=== PATIENT | female | born 1990 | race Caucasian/White ===

== ENCOUNTER → 2017-04-19 14:15 | Observation (INO) ==
[2017-04-19 12:01] LABS: Bilirubin,Urine Negative (Negative); Blood,Urine Negative (Negative); Clarity,Urine Cloudy (Clear); Color,Urine Yellow (Yellow); Glucose,Urine (UA) Normal (Normal); Ketones,Urine Negative (Negative); Leukocyte Esterase,Urine Negative (Negative); Nitrite,Urine Negative (Negative); Protein,Urine Trace mg/dL (Neg-Trace); Specific Gravity,Urine 1.016 (1.010-1.025); Urobilinogen,Urine Normal (Normal)
[2017-04-19 12:06] LABS: Bacteria,Urine Few per hpf (None-Few); Hyaline Casts,Urine None Seen per lpf (None-Few); RBC,Urine 0-3 per hpf (0-3); Squamous Epithelial Cell,Urine Many per lpf (None-Few)
[2017-04-19 12:16] LABS: Calcium Oxalate Crystals,Urine Present
[2017-04-19 13:28] LABS: Amphetamine Screen,Urine Negative ng/mL (Cutoff=1000); Barbiturate Screen,Urine Negative ng/mL (Cutoff=200); Benzodiazepines Screen,Urine Negative ng/mL (Cutoff=200); Cannabinoid Screen,Urine Negative ng/mL (Cutoff = 50); Cocaine Screen,Urine Negative ng/mL (Cutoff= 300); Opiate Screen,Urine Negative ng/mL (Cutoff=300); Phencyclidine Screen,Urine Negative ng/mL (Cutoff=25)
--- NOTE | 2017-04-19 17:56 | OB/GYN Progress Note ---
Date of Encounter: 04/19/17 Time of Encounter: 17:53 - Assessment and Plan (1) Decreased movement Status: Acute 27 y/o @36 weeks presented to L&D with reports of decreased FM since yesterday, she reports that as she was on her way, she began to feel movement, patient kept for more than 2 hrs with reactive tracing, ok for discharge Qualifiers: Fetus number: single or unspecified fetus Trimester: third trimester Qualified Code(s): O36.8130 - Decreased movements, third trimester, not applicable or unspecified Objective - Vital Signs Vital Signs: Intake and Output 04/19/17 04/19/17 04/19/17 07:59 15:59 23:59 Other: Weight 82 kg Patient Weight 04/19/17 23:59 Weight 82 kg - Labs Labs: Abnormal lab results Urine Clarity Cloudy (Clear) A 04/19/17 11:15 Urine Microscopic WBC 5-15 per hpf (0-3) H 04/19/17 11:15 Ur Squamous Epith Cells Many per lpf (None-Few) H 04/19/17 11:15
== END | disposition home or self-care (01) ==
LOC: 1NENULAB
PROVIDERS: ADMIT Student in an Organized Health Care Education/Training Program; ATTEND Student in an Organized Health Care Education/Training Program

== ENCOUNTER → 2017-05-07 13:20 | Observation (INO) ==
[2017-05-07 11:28] LABS: Basophils % 0.2 %; Eosinophils # 0.1 K/mcL (0.0-0.6); Eosinophils % 0.7 %; Hematocrit 31.6 % (35.3-44.9); Hemoglobin 10.8 g/dL (11.5-15.4); Immature Granulocytes % 1.2 % (0-4); Lymphocytes # 2.3 K/mcL (0.6-4.6); Lymphocytes % 18.7 %; Mean Corpuscular HGB Conc 34.2 g/dL (31.6-35.5); Mean Corpuscular Hemoglobin 29.5 pg (28.0-33.3); Mean Corpuscular Volume 86.3 fL (83.0-100.0); Mean Platelet Volume 10.6 fL (9.4-12.4); Monocytes # 0.9 K/mcL (0.0-1.3); Monocytes % 7.2 %; Neutrophils # 8.6 K/mcL (1.6-8.9); Platelet Count 208 K/mcL (140-400); Red Blood Count 3.66 M/mcL (3.82-4.97); Red Cell Distribution Width 13.3 % (11.5-14.5)
[2017-05-07 11:38] LABS: Alanine Aminotransferase 5 Units/L (7-52); Aspartate Amino Transferase 11 Units/L (13-39); BUN/Creatinine Ratio 14 (6-26); Blood Urea Nitrogen 6 mg/dL (6-20); Lactate Dehydrogenase 131 Units/L (140-271); Uric Acid 4.1 mg/dL (2.3-7.6); eGFR For African Americans > 60 (> 60); eGFR For Non-African Americans > 60 (> 60)
--- NOTE | 2017-05-07 12:05 | OB/GYN Progress Note ---
Date of Encounter: 05/07/17 Time of Encounter: 12:00 - Assessment and Plan (1) Elevated blood pressure complicating in third trimester, antepartum Current Visit: Yes Status: Acute Initially BP in the office 162/108, repeat 152/100. In L&D, initial BP 141/99. Recheck showed BP 113/58 with multiple repeat pressures WNL. PIH labs performed and were negative. Patient will f/u for an NST and BP check on Thursday or Thursday (05/11/17). Patient safe for discharge home, with preeclampsia and labor precautions, when to return to triage or call provider. Patient verbalizes understanding. (2) Non-stress test reactive Current Visit: Yes Status: Acute FHR baseline = 120. Accelerations present. Subjective - Subjective Principal diagnosis: elevated blood pressure Interval history: Patient is a 27 y/o female at 39 + 0 weeks. presented to L& D for elevated BP from the OB office of 162/108, repeat 152/100. Patient denies JUSTIN, N /V, fevers, chills, dysuria, abdominal pain, vaginal bleeding, leakage of fluids , or contractions. Reports active movement. Patient has a hx of 1 prior c- section and would like to do a at [facility]. 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 PNL: BT O+, RPR neg, RI, HBsAg neg, HIV neg, GBS neg Antepartum ROS: movement normal, other (elevated BP), no new complaints, no loss of fluid, no vaginal bleeding, no contractions Objective - Vital Signs Vital Signs: Vitals: initially 141/99, HR 101, afebrile. Currently (12:00pm) BP 113/58, HR 86 Intake and Output 05/06/17 05/07/17 05/07/17 23:59 07:59 15:59 Other: Weight 84.141 kg Patient Weight 05/07/17 23:59 Weight 84.141 kg - Exam FHR: category 1 FHR comments: NST reactive Auscultation: bilateral: normal Abdomen: Present: normal appearance Uterus: Present: normal - Labs Labs: Abnormal lab results WBC 12.0 K/mcL (4.3-11.1) H 05/07/17 11:05 RBC 3.66 M/mcL (3.82-4.97) L 05/07/17 11:05 Hgb 10.8 g/dL (11.5-15.4) L 05/07/17 11:05 Hct 31.6 % (35.3-44.9) L 05/07/17 11:05 Creatinine 0.43 mg/dL (0.60-1.20) L 05/07/17 11:05 AST 11 Units/L (13-39) L 05/07/17 11:05 ALT 5 Units/L (7-52) L 05/07/17 11:05 Lactate Dehydrogenase 131 Units/L (140-271) L 05/07/17 11:05
[2017-05-07 12:06] LABS: Protein/Creatinine Ratio,Urine 0.24 mg/mg (0.00-0.20)
[2017-05-07 12:10] VITALS: BP 124/68
[~2017-05-07 13:20] MED LIST: FLUARIX QUAD 2017-18 36MOS UP/PF 0.5 ML SYRINGE IM ONE
== END | disposition home or self-care (01) ==
LOC: 1NENULAB
PROVIDERS: ADMIT Obstetrics & Gynecology; ATTEND Obstetrics & Gynecology

== ENCOUNTER 2017-05-11 11:21 | Observation (INO) ==
--- NOTE | 2017-05-11 11:44 | OB/GYN Progress Note ---
Date of Encounter: 05/11/17 Time of Encounter: 11:45 - Assessment and Plan (1) and not yet delivered in third trimester Current Visit: Yes Status: Acute (2) Previous section complicating , antepartum condition or complication Current Visit: Yes Status: Acute (3) Elevated blood pressure complicating in third trimester, antepartum Current Visit: No Status: Acute BP stable NST reactive 140's no decelerations occ contractions seen Objective - Vital Signs Vital Signs: Intake and Output 05/10/17 05/11/17 05/11/17 23:59 07:59 15:59 Other: Weight 85.4 kg Patient Weight 05/11/17 23:59 Weight 85.4 kg
== END 2017-05-11 11:50 | disposition home or self-care (01) ==
LOC: INTOOBSV 11:21 → 1NENULAB 11:21
PROVIDERS: ADMIT Obstetrics & Gynecology; ATTEND Obstetrics & Gynecology

== ENCOUNTER 2020-04-19 18:50 | Inpatient (IN) ==
[2020-04-19 19:56] LABS: Creatinine,Urine 76 mg/dL; Protein/Creatinine Ratio,Urine 0.43 mg/mg (0.00-0.20)
[2020-04-19 19:59] LABS: Basophils % 0.2 %; Eosinophils % 0.3 %; Hematocrit 36.4 % (35.3-44.9); Hemoglobin 11.9 g/dL (11.5-15.4); Immature Granulocytes % 1.5 % (0-4); Lymphocytes # 2.2 K/mcL (0.6-4.6); Lymphocytes % 23.7 %; Mean Corpuscular HGB Conc 32.7 g/dL (31.6-35.5); Mean Corpuscular Hemoglobin 28.4 pg (28.0-33.3); Mean Corpuscular Volume 86.9 fL (83.0-100.0); Mean Platelet Volume 11.4 fL (9.4-12.4); Monocytes # 0.4 K/mcL (0.0-1.3); Monocytes % 4.2 %; Neutrophils # 6.5 K/mcL (1.6-8.9); Platelet Count 196 K/mcL (140-400); Red Blood Count 4.19 M/mcL (3.82-4.97); Red Cell Distribution Width 17.4 % (11.5-14.5); Segmented Neutrophils % 70.1 %; White Blood Count 9.3 K/mcL (4.3-11.1)
[2020-04-19 20:19] LABS: Alanine Aminotransferase 7 Units/L (7-52); Aspartate Amino Transferase 14 Units/L (13-39); BUN/Creatinine Ratio 16 (6-26); Blood Urea Nitrogen 6 mg/dL (6-20); Lactate Dehydrogenase 131 Units/L (140-271); Uric Acid 3.9 mg/dL (2.3-7.6); eGFR For African Americans > 60 (> 60); eGFR For Non-African Americans > 60 (> 60)
[2020-04-19] MEDS ORDERED: Ringers Solution, Lactated 1,000 ML ONE (20:43)
[2020-04-19] MEDS ORDERED: Metoclopramide 10 MG/2 ML VIAL IVP PRN (21:12)
[2020-04-19] MEDS ORDERED: *HR* FentaNYL (PF) 100 MCG/2 ML VIAL IVP PRN (21:12)
[2020-04-19] MEDS ORDERED: Azithromycin 500 MG in 0.9 % Sodium Chloride 250 ML IVPB ONE (21:12)
[2020-04-19] MEDS ORDERED: Famotidine 20 MG/2 ML VIAL IVP PRN (21:12)
[2020-04-19] MEDS ORDERED: Ondansetron 4 MG/2 ML VIAL IVP PRN (21:12)
[2020-04-19] MEDS ORDERED: Naloxone 0.4 MG/ML INJ IVP PRN (21:12)
[2020-04-19] MEDS ORDERED: Oxytocin 20 units/ LR 1000 mL 20 UNIT/1,000 ML BAG IVC SCH (21:15)
[2020-04-19] MEDS ORDERED: EPHEDrine 50 MG/ML VIAL IVP PRN (21:32)
[2020-04-20] MEDS ORDERED: Ringers Solution, Lactated 1,000 ML ONE ×3 (04:47→15:09)
[2020-04-20] MEDS ORDERED: Ropivacaine/PF 0.2% 20 ML VIAL ONE (10:09)
[2020-04-20] MEDS: Epidural Premix (fent/bupiv) 110 ML EP SCH ×2 (10:20→18:49)
[2020-04-20 10:22] LABS: Amphetamine Screen,Urine Negative ng/mL (Cutoff=1000); Barbiturate Screen,Urine Negative ng/mL (Cutoff=200); Benzodiazepines Screen,Urine Negative ng/mL (Cutoff=200); Cannabinoid Screen,Urine Negative ng/mL (Cutoff = 50); Cocaine Screen,Urine Negative ng/mL (Cutoff= 300); Opiate Screen,Urine Negative ng/mL (Cutoff=300); Phencyclidine Screen,Urine Negative ng/mL (Cutoff=25)
[2020-04-20] MEDS ORDERED: Lidocaine 1% 20 ML MDV ONE (23:21)
[2020-04-21] MEDS ORDERED: Lanolin 7 G OINT...G. TP PRN (01:04)
[2020-04-21] MEDS ORDERED: Rho Immune Globulin 1,500 UNIT SYRINGE IM PRN (01:04)
[2020-04-21] MEDS ORDERED: Benzocaine/Menthol 56 GM AEROSOL SPRAY TP PRN (01:04)
[2020-04-21] MEDS ORDERED: Measles/Mumps/Rubella Vacc 0.5 ML VIAL SQ PRN (01:04)
[2020-04-21] MEDS ORDERED: Oxytocin 20 units/ LR 1000 mL 20 UNIT/1,000 ML BAG IVC ONE (01:04)
[2020-04-21] MEDS ORDERED: Oxytocin 20 units/ LR 1000 mL 20 UNIT/1,000 ML BAG IVC SCH (01:04)
[2020-04-21] MEDS: Acetaminophen 325 MG TABLET PO PRN ×2 (01:43→08:33)
[2020-04-21] MEDS: Ibuprofen 600 MG TABLET PO PRN ×3 (04:17→21:25)
[2020-04-21 06:10] LABS: Basophils % 0.1 %; Eosinophils % 0.1 %; Hematocrit 21.2 % (35.3-44.9); Immature Granulocytes % 0.6 % (0-4); Lymphocytes # 1.2 K/mcL (0.6-4.6); Lymphocytes % 8.8 %; Mean Corpuscular HGB Conc 32.5 g/dL (31.6-35.5); Mean Corpuscular Hemoglobin 29.1 pg (28.0-33.3); Mean Corpuscular Volume 89.5 fL (83.0-100.0); Mean Platelet Volume 11.5 fL (9.4-12.4); Monocytes # 0.6 K/mcL (0.0-1.3); Monocytes % 4.6 %; Neutrophils # 11.4 K/mcL (1.6-8.9); Platelet Count 115 K/mcL (140-400); Red Blood Count 2.37 M/mcL (3.82-4.97); Red Cell Distribution Width 17.7 % (11.5-14.5); Segmented Neutrophils % 85.8 %; White Blood Count 13.3 K/mcL (4.3-11.1)
[2020-04-21 06:11] LABS: Hemoglobin 6.9 g/dL (11.5-15.4)
[2020-04-21] MEDS: Prenatal Vit/FA 1 EACH TABLET PO SCH (08:33)
[2020-04-22 04:21] LABS: Basophils % 0.2 %; Eosinophils # 0.2 K/mcL (0.0-0.6); Eosinophils % 1.3 %; Hematocrit 27.9 % (35.3-44.9); Immature Granulocytes % 1.1 % (0-4); Lymphocytes # 2.9 K/mcL (0.6-4.6); Lymphocytes % 23.5 %; Mean Corpuscular HGB Conc 32.3 g/dL (31.6-35.5); Mean Corpuscular Hemoglobin 28.2 pg (28.0-33.3); Mean Corpuscular Volume 87.5 fL (83.0-100.0); Mean Platelet Volume 11.1 fL (9.4-12.4); Monocytes # 0.7 K/mcL (0.0-1.3); Monocytes % 5.4 %; Neutrophils # 8.4 K/mcL (1.6-8.9); Platelet Count 164 K/mcL (140-400); Red Blood Count 3.19 M/mcL (3.82-4.97); Segmented Neutrophils % 68.5 %; White Blood Count 12.3 K/mcL (4.3-11.1)
[2020-04-22 07:30] VITALS: BP 127/91
[2020-04-22] MEDS: Prenatal Vit/FA 1 EACH TABLET PO SCH (08:26)
[2020-04-22] MEDS: Ibuprofen 600 MG TABLET PO PRN (08:26)
== END 2020-04-22 15:52 | disposition home or self-care (01) | DRG 807 ==
LOC: 1NENULAB 18:50 → 1NENUOBS 04-21 03:16
PROVIDERS: ADMIT Obstetrics & Gynecology; ATTEND Obstetrics & Gynecology